=== PATIENT | female | born 1965 | race Caucasian/White ===

== ENCOUNTER 2017-02-25 07:11 | Outpatient (RCR) | payer MEDICAID, SELFPAY ==
--- NOTE | 2017-02-26 10:49 | HP.OTFCE_ITS ---
HP OT Functional Capacity Eval - Task Lift Floor (Occasional 1-33% of Day): 35# Floor (Frequent 34-66% of Day): 18# Floor (Constant 67-100% of Day): 7# Floor PDL: Light-Medium Knee (Occasional 1-33% of Day): 35# Knee (Frequent 34-66% of Day): 18# Knee (Constant 67-100% of Day): 7# Knee PDL: Light-Medium Waist (Occasional 1-33% of Day): 30# Waist (Frequent 34-66% of Day): 15# Waist (Constant 67-100% of Day): 6# Waist PDL: Light Shoulder (Occasional 1-33% of Day): 30# Shoulder (Frequent 34-66% of Day): 15# Shoulder (Constant 67-100% of Day): 6# Shoulder PDL: Light Overhead (Occasional 1-33% of Day): 15# Overhead (Frequent 34-66% of Day): 8# Overhead (Constant 67-100% of Day): NA Overhead PDL: Sedentary-Light - Work Activity/Posture Bending: Occasional Ability (1-33% of day) Comments: with external support Squatting: Occasional Ability (1-33% of day) Comments: low occasional ability with external support Kneeling: No Ablility (0% of day) Reaching out: Frequent Ability (34-66% of day) Reaching up: Frequent Ability (34-66% of day) Sitting: Frequent Ability (34-66% of day) Walking: Occasional Ability (1-33% of day) Standing: Occasional Ability (1-33% of day) Comments: with ability to shift her body weight - Reference Duration Sedentary Sedentary Light Light Light Medium Medium Medium Heavy Very Heavy Heavy Occasional (0-33% of day) Frequent (34-66% of day) Constant (67-100% of day) 10 # Negligible Negligible 15 # 8 # Negligible 20 # 10# Negli. 35 # 18 # 7 # 50 # 25 # 10 # 75 # 100 # >100 # 38 # 50 # >50 # 15 # 20 # >20 # - Patient Information Height: 4 ft 10 in Weight:: 48.988 kg Hand Dominance: Right - Medical History Medical History Including Restrictions: Pt states she injured her right knee at work in 2014. Pt states she did have a few physical therapy session but was not sucessful- pt had right knee in 2014 and had a manicus repair and scar tissue removed. Following pt returned to physical therapy for 6 weeks but was not helpful. Pt did have complications following her injury of blood clots in her leg and lung- resolved during a hospital stay. - Diagnoses Diagnoses: Right Knee Medial Meniscus tear. High cholesteral controlled with meds. Hyperthyroid controlled with meds. Loy's Thyroiditis dx - Symptoms Symptoms: Right leg pain. limited range of motion. sleep disturbance - Pain Pain: Pt states at rest her right knee pain is 8/10 and states she does not take pain medication. - Work History Work History: Pt states she was employed at [employer] for almost 30 years. Pt states her last day of employment was 2014. 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 Pt states her job required her to be on her feet for long hours. Pt states she was requred to lift about 50# during her job. - Behavioral Behavioral: pt was coorperative during the assissment - ADLS ADLS: Pt lives with her parents, her children and grandchildren 11,7,4 in a ranch home with 2 enty steps no railing. Pt states her bathroom is a tub/shower combo. Pt states she is independent with all her bathing and dressing tasks. Pt states she does do cooking and cleaning but requires short sitting breaks duing the process. Pt states she drives independenlty. Pt states she is independent with grocery shopping. Pt states she does have help with her laundry. - Physical Examination Physical Examination: Pt ambulates in clinic with right knee brace. States the brace is her son's and that she wears the brace to help her feel more suppot around her knee ROM: PT demo with right knee flex at 90 and ex at -5. All other ROM is WFL. During functional assesment pt demonstrated guarded knee motion and utilized her knee soft knee brace. Strength: Pt demo UB strength 4/5 and LB strength 4/5 Right Attorney Law Clerk Strength Average: 38.33 Right Attorney Law Clerk Strength Percentile: 2.3% Left Attorney Law Clerk Strength Average: 36.66 Left Attorney Law Clerk Strength Percentile: 1.9% Right Lateral Pinch Average: 6.00 Right Lateral Pinch Percentile: <10% Left Lateral Pinch Average: 6.00 Left Lateral Pinch Percentile: <10% Right Tripod Pinch Average: 2.00 Right Tripod Pinch Percentile: <10% Left Tripod Pinch Average: 3.33 Left Tripod Pinch Percentile: <10% Sensation: Denies deficits Fine Motor: Denies deficits Balance: No loss of balance noted during the assesment. - Non Material Handling Activities Bending: Pt demonstrated the ability to bend forward three times, ten times, and ten times rapidly. Pt used light external support during this test. Pt reported resting pain at 8/10 due to knee pain pt can bend forward on a occasional basis. Squatting: Pt demonstrated the abiliyt to squat three times and then times. Pt was unable to perform ten times rapidly- Pt used light externa support- states a sharp shooting pain from the middle of her knee to the inside (medial side of her knee) pt can squat on a low occasional basis. Kneeling: pt states she does not kneel well- she demonstrated the ability to sit on ground with right knee extended- pt asked to kneel three times- pt completed a 50% of a kneel with external support three times. Pt states pain increases with bending her knee and she stops the motion. No ability to kneel Reaching out/up: PT demonstrated the ability to reach up/out three times, ten times and ten times rapidly. pt completed task while standing. pt can perform on a frequent abilty. Walking: Pt ambulated 7min and 30 sec. with a antalgic gait pt reported 9/10 right knee pain following the walk. Occational basis. Standing: pt stood for 10min with leaning on counter and keeping rigt knee bend or weight off of her right side. Occasional basis Sitting: Pt demonstrated the ability to sit for 30 min with no expressed or apparent discomfort. pt can sit on a frequent basis. Climbing Stairs: Pt ascended and descended ten steps with a left leg step up and right leg straight and when descending pt would lead with the right and step down with left- pt did use right hand rail. - Dynamic Occasional Lifting Capacity Floor Lift: PT demonstrated the ability to lift 35# maximally from this level Knee Lift: PT demonstrated the ability to lift 35# maximally from this level Waist Lift: PT demonstrated the ability to lift 30# maximally from this level Shoulder Lift: PT demonstrated the ability to lift 30# maximally from this level Overhead Lift: PT demonstrated the ability to lift 15# maximally from this level Carrying: Pt demonstrated the ability to carry 15# for 40 feet with good ability - pt reported right knee pain 9/10. Comments: Pt reported 9/10 right knee pain.
== END 2017-02-25 19:00 | disposition home or self-care (01) ==
LOC: OT 07:11
PROVIDERS: Visit Provider Orthopaedic Surgery
DX: S83.241D Other tear of medial meniscus, current injury, right knee, subsequent encounter (principal)
CPT/HCPCS: 97750